=== PATIENT | male | born 1965 | race African-American/Black ===

== ENCOUNTER 2021-04-27 22:09 | Inpatient (IN) | payer OTHER ==
[2021-04-27 22:35] VITALS: BMI 23.0
[2021-04-27] MEDS ORDERED: MAGNESIUM HYDROX 2400MG/30ML ORAL SUSPENSION 30 ML CUP PO PRN (23:12)
[2021-04-27] MEDS ORDERED: ONDANSETRON *ODT* 4 MG TABLET SL PRN (23:12)
[2021-04-27] MEDS ORDERED: P-EPHED 60MG/TRIPROLIDI 2.5MG TABLET PO PRN (23:12)
[2021-04-27] MEDS ORDERED: ACETAMINOPHEN 325 MG TABLET (FP) PO PRN ×2 (23:12)
[2021-04-27] MEDS ORDERED: guaiFENesin 200 MG/10 ML 10 ML UNIT-DOSE CUPS PO PRN (23:12)
[2021-04-27] MEDS ORDERED: MAGNESIUM CITRATE 300 ML BOTTLE PO PRN (23:12)
[2021-04-27] MEDS ORDERED: NALOXONE HCL 0.4 MG/ML VIAL IM PRN (23:12)
[2021-04-27] MEDS ORDERED: METHOCARBAMOL 500 MG TABLET PO PRN (23:12)
[2021-04-27] MEDS ORDERED: hydrOXYzine PAMOATE 25 MG CAPSULE (FP) PO PRN (23:12)
[2021-04-27] MEDS ORDERED: IBUPROFEN 400 MG TABLET (FP) PO PRN (23:12)
[2021-04-27] MEDS ORDERED: BISMUTH SUBSALICYLATE 524 MG/30 ML PO PRN (23:12)
[2021-04-27] MEDS ORDERED: NALOXONE (NARCAN) HCL 4 MG/0.1 ML SPRAY NS PRN (23:12)
[2021-04-27] MEDS ORDERED: MENTHOL/PHENOL 1 EACH UD MM PRN (23:12)
[2021-04-27] MEDS ORDERED: NICOTINE 10 MG CARTRIDGE (INHALER) IH PRN (23:12)
[2021-04-27] MEDS ORDERED: MAG HYDROX/AL HYDROX/SIMETH 30 ML UNIT-DOSE CUP PO PRN (23:12)
[2021-04-27] MEDS ORDERED: DICYCLOMINE HCL 10 MG CAPSULE PO PRN (23:12)
[2021-04-28] MEDS ORDERED: NICOTINE 14 MG/24 HOURS TOPICAL PATCH TD SCH (10:00)
[2021-04-28] MEDS ORDERED: PRENATAL VITAMINS W/ FOLIC ACID TABLET (FP) PO SCH (10:00)
[2021-04-28 13:21] VITALS: BP 141/81; PULSE 81; TEMP 98.2
[2021-04-28] MEDS ORDERED: MELATONIN 5 MG TABLETS PO SCH (22:00)
[2021-04-28] MEDS ORDERED: THIAMINE HCL 100 MG TABLET (FP) PO SCH (22:00)
[2021-04-29] MEDS ORDERED: FLU VACC QS2021-22(6MOS UP)/PF 60 MCG/0.5 ML SYRINGE IM ONE (12:00)
== END 2021-04-28 13:23 | disposition other institution (70) | DRG 897 ==
LOC: YASAS 22:09 → UNDOADMIN 23:15 → Y6N 23:15 → UNDODISIN 04-28 13:23
PROVIDERS: ADMIT Allergy & Immunology; ATTEND Allergy & Immunology
PROC: HZ2ZZZZ Detoxification Services for Substance Abuse Treatment (ICD-10-PCS; principal; 2021-04-27)
DX: F11.23 Opioid dependence with withdrawal (principal); F10.230 Alcohol dependence with withdrawal, uncomplicated; F16.10 Hallucinogen abuse, uncomplicated; F17.210 Nicotine dependence, cigarettes, uncomplicated; D57.3 Sickle-cell trait; K40.90 Unilateral inguinal hernia, without obstruction or gangrene, not specified as recurrent; R10.31 Right lower quadrant pain; Z59.01 Sheltered homelessness
CPT/HCPCS: 93005; 93010; C9803; U0003; U0005

== ENCOUNTER 2021-04-28 01:16 | Emergency (ER) | payer OTHER ==
[2021-04-28 01:37] VITALS: TEMP 97.1; BMI 23.0
[2021-04-28 02:11] LABS: BASO % 0.8 % (0-2.0); EOS % 2.8 % (0-4.5); HEMATOCRIT 38.6 % (35.4-49); MCH 30.1 pg (25.7-33.7); MCHC 33.6 g/dl (32.0-35.9); MEAN CELL VOLUME 89.5 fl (80-96); MEAN PLT VOLUME 6.4 fl (7.5-11.1); MONO % 5.1 % (3.8-10.2); NEUT % 69.3 % (42.8-82.8); PLATELET COUNT 188 10^3/uL (134-434); RBC 4.31 M/mm3 (4.00-5.60); RDW 13.4 % (11.9-15.9); WHITE BLOOD COUNT 8.5 K/mm3 (4.0-10.0)
[2021-04-28 02:34] LABS: ALBUMIN 3.1 g/dl (3.4-5.0); CALCIUM 8.6 mg/dL (8.5-10.1)
[2021-04-28 02:38] LABS: CREATININE 0.9 mg/dL (0.55-1.3)
[2021-04-28 02:39] LABS: BILIRUBIN,TOTAL 0.2 mg/dL (0.2-1); TOT PROT 5.6 g/dl (6.4-8.2)
[2021-04-28 05:20] VITALS: PULSE 54
[2021-04-28 07:44] VITALS: BP 117/74
== END 2021-04-28 08:12 | disposition home or self-care (01) ==
LOC: JER 01:16
DX: K46.9 Unspecified abdominal hernia without obstruction or gangrene (principal)
CPT/HCPCS: 36415; 80053; 83605; 85025; 99283-25

== ENCOUNTER 2021-04-28 13:34 | Inpatient (IN) | payer OTHER ==
[~2021-04-28 13:34] MED LIST: ACETAMINOPHEN 325 MG TABLET (FP) PO PRN; IBUPROFEN 400 MG TABLET (FP) PO PRN; LOPERAMIDE HCL 2 MG CAPSULE PO PRN; MAG HYDROX/AL HYDROX/SIMETH 30 ML UNIT-DOSE CUP PO PRN; MAGNESIUM CITRATE 300 ML BOTTLE PO PRN; MAGNESIUM HYDROX 2400MG/30ML ORAL SUSPENSION 30 ML CUP PO PRN; NICOTINE 10 MG CARTRIDGE (INHALER) IH PRN; NICOTINE POLACRILEX 2 MG GUM BUC PRN; P-EPHED 60MG/TRIPROLIDI 2.5MG TABLET PO PRN; guaiFENesin 200 MG/10 ML 10 ML UNIT-DOSE CUPS PO PRN; hydrOXYzine PAMOATE 25 MG CAPSULE (FP) PO PRN
[2021-04-28 14:18] VITALS: BP 111/63; PULSE 57; TEMP 98.7
[2021-04-28] MEDS ORDERED: THIAMINE HCL 100 MG TABLET (FP) PO SCH (22:00)
[2021-04-28] MEDS ORDERED: MELATONIN 5 MG TABLETS PO SCH (22:00)
[2021-04-29] MEDS ORDERED: PRENATAL VITAMINS W/ FOLIC ACID TABLET (FP) PO SCH (10:00)
[2021-04-29] MEDS ORDERED: NICOTINE 14 MG/24 HOURS TOPICAL PATCH TD SCH (10:00)
== END 2021-04-28 15:25 | disposition left against medical advice (07) | DRG 894 ==
LOC: YASAS 13:34 → Y5N 13:36
PROVIDERS: ADMIT Allergy & Immunology; ATTEND Allergy & Immunology
PROC: HZ42ZZZ Group Counseling for Substance Abuse Treatment, Cognitive-Behavioral (ICD-10-PCS; principal; 2021-04-28)
DX: F11.20 Opioid dependence, uncomplicated (principal); F10.20 Alcohol dependence, uncomplicated; F16.10 Hallucinogen abuse, uncomplicated; F17.210 Nicotine dependence, cigarettes, uncomplicated; K40.90 Unilateral inguinal hernia, without obstruction or gangrene, not specified as recurrent; Z59.01 Sheltered homelessness

== ENCOUNTER 2023-07-10 16:45 | Observation (INO) | payer OTHER ==
[2023-07-10 16:55] VITALS: BMI 23.7
[2023-07-10] MEDS ORDERED: SODIUM CHLORIDE 500 ML IV STA (17:48)
[2023-07-10] MEDS ORDERED: MECLIZINE HCL 12.5 MG TABLET PO ONE (17:57)
[2023-07-10 18:50] LABS: BASO % 0.4 % (0-2.0); EOS % 0.3 % (0-4.5); HEMATOCRIT 39.8 % (35.4-49); HEMOGLOBIN 13.2 GM/dL (11.7-16.9); LYMPH % 7.6 % (8-40); MCH 28.9 pg (25.7-33.7); MCHC 33.2 g/dl (32.0-35.9); MEAN CELL VOLUME 87.1 fl (80-96); MEAN PLT VOLUME 6.5 fl (7.5-11.1); MONO % 2.5 % (3.8-10.2); NEUT % 89.2 % (42.8-82.8); PLATELET COUNT 189 10^3/uL (134-434); RBC 4.57 M/mm3 (4.00-5.60); RDW 14.1 % (11.9-15.9); WHITE BLOOD COUNT 11.7 K/mm3 (4.0-10.0)
[2023-07-10 19:09] LABS: POTASSIUM 3.9 mmol/L (3.5-5.1)
[2023-07-10 19:11] LABS: ALBUMIN 3.4 g/dl (3.4-5.0); CALCIUM 9.1 mg/dL (8.5-10.1)
[2023-07-10 19:14] LABS: CREATININE 0.7 mg/dL (0.55-1.3)
[2023-07-10 19:16] LABS: BILIRUBIN,TOTAL 0.4 mg/dL (0.2-1); TOT PROT 6.1 g/dl (6.4-8.2)
[2023-07-10] MEDS ORDERED: ALBUTEROL SO4 2.5/IPRATROPIUM 0.5 INH SOL 3 ML VIAL.NEB. NEB ONE (20:05)
[2023-07-10] MEDS ORDERED: MECLIZINE HCL 12.5 MG TABLET ONE (20:11)
[2023-07-10] MEDS ORDERED: MECLIZINE HCL 25 MG TABLET (FP) PO ONE (20:21)
[2023-07-10] MEDS ORDERED: ONDANSETRON 4 MG/2 ML VIAL IVPUSH PRN (23:00)
[2023-07-10] MEDS ORDERED: LORazepam 1 MG TABLET PO PRN (23:04)
[2023-07-10 23:51] LABS: MAGNESIUM 1.8 mg/dL (1.8-2.4)
[2023-07-11] MEDS: methaDONE HCL 40 MG DISPERSABLE TABLET PO SCH (08:49)
[2023-07-11] MEDS: ENOXAPARIN NA (PORCINE) 40 MG/0.4 ML DISP.SYRIN SQ SCH (09:08)
[2023-07-11] MEDS: THIAMINE HCL 100 MG TABLET (FP) PO SCH (09:08)
[2023-07-11] MEDS: MECLIZINE HCL 12.5 MG TABLET PO PRN (09:08)
[2023-07-11] MEDS: FOLIC ACID 1 MG TABLET (FP) PO SCH (09:08)
[2023-07-11 10:48] LABS: BASO % 0.3 % (0-2.0); EOS % 2.3 % (0-4.5); HEMATOCRIT 37.4 % (35.4-49); HEMOGLOBIN 12.5 GM/dL (11.7-16.9); LYMPH % 29.1 % (8-40); MCH 29.5 pg (25.7-33.7); MCHC 33.5 g/dl (32.0-35.9); MONO % 3.5 % (3.8-10.2); NEUT % 64.8 % (42.8-82.8); PLATELET COUNT 174 10^3/uL (134-434); RBC 4.25 M/mm3 (4.00-5.60); RDW 13.9 % (11.9-15.9); WHITE BLOOD COUNT 7.8 K/mm3 (4.0-10.0)
[2023-07-11 10:53] LABS: POTASSIUM 3.4 mmol/L (3.5-5.1)
[2023-07-11 10:56] LABS: ALBUMIN 2.8 g/dl (3.4-5.0); BLOOD UREA NITROGEN 10.8 mg/dL (7-18); MAGNESIUM 1.9 mg/dL (1.8-2.4)
[2023-07-11 10:59] LABS: PHOSPHOROUS 1.5 mg/dL (2.5-4.9)
[2023-07-11 11:00] LABS: BILIRUBIN,TOTAL 0.3 mg/dL (0.2-1); TOT PROT 5.3 g/dl (6.4-8.2)
[2023-07-11 11:02] LABS: CREATININE 0.8 mg/dL (0.55-1.3)
[2023-07-11] MEDS: FLUTICASONE PROP 0.05% 16 GM NASAL SPRAY NS SCH ×2 (14:21→21:25)
[2023-07-11] MEDS ORDERED: POTASSIUM PHOSPHATE 30 MM in SODIUM CHLORIDE 500 ML IVPB ONE (19:30)
[2023-07-11 21:41] LABS: COCAINE, UR NEGATIVE (NEGATIVE); URINE BARBITURATES NEGATIVE (NEGATIVE); URINE BENZODIAZEPINES NEGATIVE (NEGATIVE)
[2023-07-11 21:42] LABS: URINE AMPHETAMINES NEGATIVE (NEGATIVE)
[2023-07-11 22:26] LABS: METHADONE, UR POSITIVE (NEGATIVE); OPIATES, URI POSITIVE (NEGATIVE); PHENCYCLIDINE,URINE POSITIVE (NEGATIVE)
[2023-07-12] MEDS: methaDONE HCL 40 MG DISPERSABLE TABLET PO SCH (06:07)
[2023-07-12] MEDS: MULTIVITAMINS (DAILY MVI) TABLET (FP) PO SCH (09:29)
[2023-07-12] MEDS: FOLIC ACID 1 MG TABLET (FP) PO SCH (09:30)
[2023-07-12] MEDS: THIAMINE HCL 100 MG TABLET (FP) PO SCH (09:30)
[2023-07-12] MEDS: ENOXAPARIN NA (PORCINE) 40 MG/0.4 ML DISP.SYRIN SQ SCH (09:30)
[2023-07-12] MEDS: FLUTICASONE PROP 0.05% 16 GM NASAL SPRAY NS SCH ×2 (09:32→21:32)
[2023-07-12 10:53] LABS: POTASSIUM 3.9 mmol/L (3.5-5.1)
[2023-07-12 10:55] LABS: BASO % 0.4 % (0-2.0); EOS % 3.6 % (0-4.5); HEMATOCRIT 36.9 % (35.4-49); HEMOGLOBIN 12.5 GM/dL (11.7-16.9); LYMPH % 28.5 % (8-40); MCH 29.6 pg (25.7-33.7); MCHC 33.9 g/dl (32.0-35.9); MEAN CELL VOLUME 87.2 fl (80-96); MEAN PLT VOLUME 6.8 fl (7.5-11.1); NEUT % 60.5 % (42.8-82.8); PLATELET COUNT 165 10^3/uL (134-434); RBC 4.23 M/mm3 (4.00-5.60); RDW 14.2 % (11.9-15.9); WHITE BLOOD COUNT 6.1 K/mm3 (4.0-10.0)
[2023-07-12 11:00] LABS: CALCIUM 8.9 mg/dL (8.5-10.1)
[2023-07-12 11:01] LABS: BLOOD UREA NITROGEN 10.1 mg/dL (7-18)
[2023-07-12 11:02] LABS: MAGNESIUM 1.9 mg/dL (1.8-2.4)
[2023-07-12 11:04] LABS: CREATININE 0.7 mg/dL (0.55-1.3); PHOSPHOROUS 3.1 mg/dL (2.5-4.9)
[2023-07-13] MEDS: methaDONE HCL 40 MG DISPERSABLE TABLET PO SCH (06:04)
[2023-07-13] MEDS: ENOXAPARIN NA (PORCINE) 40 MG/0.4 ML DISP.SYRIN SQ SCH (10:06)
[2023-07-13] MEDS: FOLIC ACID 1 MG TABLET (FP) PO SCH (10:06)
[2023-07-13] MEDS: FLUTICASONE PROP 0.05% 16 GM NASAL SPRAY NS SCH (10:07)
[2023-07-13 10:08] LABS: BASO % 0.3 % (0-2.0); EOS % 3.5 % (0-4.5); HEMATOCRIT 38.5 % (35.4-49); HEMOGLOBIN 12.9 GM/dL (11.7-16.9); LYMPH % 30.5 % (8-40); MCH 29.4 pg (25.7-33.7); MCHC 33.5 g/dl (32.0-35.9); MEAN CELL VOLUME 87.6 fl (80-96); MEAN PLT VOLUME 6.7 fl (7.5-11.1); MONO % 5.8 % (3.8-10.2); NEUT % 59.9 % (42.8-82.8); PLATELET COUNT 168 10^3/uL (134-434); RBC 4.39 M/mm3 (4.00-5.60); RDW 14.1 % (11.9-15.9); WHITE BLOOD COUNT 6.2 K/mm3 (4.0-10.0)
[2023-07-13] MEDS: MULTIVITAMINS (DAILY MVI) TABLET (FP) PO SCH (10:09)
[2023-07-13] MEDS: THIAMINE HCL 100 MG TABLET (FP) PO SCH (10:09)
[2023-07-13 10:26] LABS: POTASSIUM 3.9 mmol/L (3.5-5.1)
[2023-07-13] MEDS: MECLIZINE HCL 12.5 MG TABLET PO PRN (10:37)
[2023-07-13 10:42] LABS: BLOOD UREA NITROGEN 10.1 mg/dL (7-18)
[2023-07-13 10:45] LABS: CREATININE 0.7 mg/dL (0.55-1.3)
[2023-07-13 15:07] VITALS: BP 94/65; PULSE 52; TEMP 98
[2023-07-13 16:41] VITALS: RESP 17
== END 2023-07-13 16:45 | disposition home or self-care (01) ==
LOC: JER 16:45 → JERBED 21:29 → J5S 07-11 03:03
PROVIDERS: ADMIT Internal Medicine; ATTEND Internal Medicine
PROC: 3E0F7GC Introduction of Other Therapeutic Substance into Respiratory Tract, Via Natural or Artificial Opening (ICD-10-PCS; principal; 2023-07-10)
PROC: 3E023GC Introduction of Other Therapeutic Substance into Muscle, Percutaneous Approach (ICD-10-PCS; 2023-07-10)
PROC: 3E033NZ Introduction of Analgesics, Hypnotics, Sedatives into Peripheral Vein, Percutaneous Approach (ICD-10-PCS; 2023-07-10)
DX: R42 Dizziness and giddiness (principal); F19.99 Other psychoactive substance use, unspecified with unspecified psychoactive substance-induced disorder; Z29.89 Encounter for other specified prophylactic measures; Z91.013 Allergy to seafood; D57.3 Sickle-cell trait; F17.210 Nicotine dependence, cigarettes, uncomplicated
CPT/HCPCS: 0241U-QW; 36415; 70450-TC; 70551-TC; 71046-TC-FY; 72125-TC; 72170-TC-FY; 80048; 80053; 80061; 80307; 82607; 82746; 82962; 83735; 84100; 84443; 84484; 85025; 93005; 93010; 93306-TC; 94640; 96365; 96372; 96375; 97116-GP; 97162-GP; 99285-25; G0378

== ENCOUNTER 2023-07-28 09:09 | Inpatient (IN) | payer OTHER ==
[2023-07-28 09:37] VITALS: BMI 25.4
[2023-07-28] MEDS ORDERED: BENZONATATE 200 MG CAPSULE PO PRN (10:03)
[2023-07-28] MEDS ORDERED: guaiFENesin 600 MG TABLET.ER (FP) PO PRN (10:03)
[2023-07-28] MEDS ORDERED: hydrOXYzine PAMOATE 25 MG CAPSULE (FP) PO PRN (10:03)
[2023-07-28] MEDS ORDERED: POLYETHYLENE GLYCOL (HEALTHYLAX) 3350 17 GM PACKET PO PRN (10:03)
[2023-07-28] MEDS ORDERED: NALOXONE HCL 0.4 MG/ML VIAL IM PRN (10:03)
[2023-07-28] MEDS ORDERED: NICOTINE POLACRILEX 4 MG GUM BUC PRN (10:03)
[2023-07-28] MEDS ORDERED: MAG HYDROX/AL HYDROX/SIMETH 30 ML UNIT-DOSE CUP PO PRN (10:03)
[2023-07-28] MEDS ORDERED: BENZOCAINE/MENTHOL (CHLORASEPTIC ) LOZENGE MM PRN (10:03)
[2023-07-28] MEDS ORDERED: ACETAMINOPHEN 325 MG TABLET (FP) PO PRN (10:03)
[2023-07-28] MEDS ORDERED: NALOXONE HCL (KLOXXADO) 8 MG SPRAY NS PRN (10:03)
[2023-07-28] MEDS ORDERED: MAGNESIUM HYDROX 2400MG/30ML ORAL SUSPENSION 30 ML CUP PO PRN (10:03)
[2023-07-28] MEDS ORDERED: LOPERAMIDE HCL 2 MG CAPSULE PO PRN (10:03)
[2023-07-28] MEDS ORDERED: IBUPROFEN 600 MG TABLET (FP) PO PRN (10:03)
[2023-07-28] MEDS ORDERED: IBUPROFEN 400 MG TABLET (FP) PO PRN (10:03)
[2023-07-28] MEDS ORDERED: MECLIZINE HCL 12.5 MG TABLET PO PRN (10:06)
[2023-07-28] MEDS: PRENATAL VITAMINS W/ FOLIC ACID TABLET (FP) PO SCH (11:43)
[2023-07-28] MEDS: MIRTAZAPINE 15 MG TABLET (FP) PO SCH (21:20)
[2023-07-28] MEDS: THIAMINE HCL 100 MG TABLET (FP) PO SCH (21:20)
[2023-07-28] MEDS: MELATONIN 5 MG TABLETS PO SCH (21:20)
[2023-07-28] MEDS: FLUTICASONE PROP 0.05% 16 GM NASAL SPRAY NS SCH (21:21)
[2023-07-29] MEDS ORDERED: methaDONE HCL 40 MG DISPERSABLE TABLET PO SCH (06:00)
[2023-07-29] MEDS: methaDONE HCL 40 MG DISPERSABLE TABLET PO SCH (06:17)
[2023-07-29 10:42] LABS: HEMATOCRIT 38.9 % (35.4-49); HEMOGLOBIN 13.1 GM/dL (11.7-16.9); MCH 29.4 pg (25.7-33.7); MCHC 33.7 g/dl (32.0-35.9); MEAN CELL VOLUME 87.2 fl (80-96); MEAN PLT VOLUME 6.9 fl (7.5-11.1); PLATELET COUNT 180 10^3/uL (134-434); RBC 4.46 M/mm3 (4.00-5.60); RDW 14.3 % (11.9-15.9); WHITE BLOOD COUNT 3.8 K/mm3 (4.0-10.0)
[2023-07-29 12:04] LABS: POTASSIUM 4.4 mmol/L (3.5-5.1)
[2023-07-29 12:07] LABS: ALBUMIN 3.4 g/dl (3.4-5.0); CALCIUM 9.7 mg/dL (8.5-10.1)
[2023-07-29 12:08] LABS: BLOOD UREA NITROGEN 12.5 mg/dL (7-18)
[2023-07-29 12:11] LABS: CREATININE 0.9 mg/dL (0.55-1.3)
[2023-07-29 12:12] LABS: BILIRUBIN,TOTAL 0.3 mg/dL (0.2-1); TOT PROT 6.3 g/dl (6.4-8.2)
[2023-07-30] MEDS: FLU VACCINE (FLULAVAL) PF 60 MCG/0.5 ML SYRINGE 2023-2024 IM ONE (10:05)
[2023-07-30 15:36] LABS: PH,URINE 7.5 (5.0-8.0); URINE APPEARANCE CLEAR; URINE BILIRUBIN NEGATIVE (NEGATIVE); URINE COLOR YELLOW; URINE GLUCOSE (UA) NEGATIVE (NEGATIVE); URINE KETONE NEGATIVE (NEGATIVE); URINE LEUK ESTERASE NEGATIVE (NEGATIVE); URINE NITRITE NEGATIVE (NEGATIVE); URINE PROTEIN NEGATIVE (NEGATIVE); URINE UROBILINOGEN 0.2 mg/dL (0.2-1.0)
[2023-07-31 07:01] VITALS: BP 124/84; PULSE 58; RESP 18; TEMP 97.7
== END 2023-07-31 13:30 | disposition home or self-care (01) | DRG 895 ==
LOC: YASAS 09:09 → Y3E 12:48
PROVIDERS: ADMIT Allergy & Immunology; ATTEND Psychiatry & Neurology Pain Medicine
PROC: HZ42ZZZ Group Counseling for Substance Abuse Treatment, Cognitive-Behavioral (ICD-10-PCS; principal; 2023-07-28)
DX: F16.20 Hallucinogen dependence, uncomplicated (principal); F11.20 Opioid dependence, uncomplicated; F19.282 Other psychoactive substance dependence with psychoactive substance-induced sleep disorder; F10.20 Alcohol dependence, uncomplicated; F17.210 Nicotine dependence, cigarettes, uncomplicated; F32.A Depression, unspecified; J06.9 Acute upper respiratory infection, unspecified; R42 Dizziness and giddiness; Z91.410 Personal history of adult physical and sexual abuse; Z63.0 Problems in relationship with spouse or partner; Z28.310 Unvaccinated for COVID-19; Z28.9 Immunization not carried out for unspecified reason; Z56.0 Unemployment, unspecified
CPT/HCPCS: 36415; 80053; 81003; 85027; 86780; 87635; 93005; 93010

== ENCOUNTER 2023-08-01 20:33 | Emergency (ER) | payer OTHER ==
[2023-08-01 20:39] VITALS: BP 129/85; PULSE 69; RESP 16; TEMP 97.5; BMI 24.4
[2023-08-01] MEDS ORDERED: ACETAMINOPHEN 325 MG TABLET (FP) ONE (21:24)
[2023-08-01] MEDS: ACETAMINOPHEN 500 MG TABLET (FP) PO ONE (21:28)
[2023-08-01] MEDS ORDERED: LACTULOSE 20 GM/30 ML UDC (FOR ORAL USE ONLY) ONE (22:57)
[2023-08-01] MEDS ORDERED: POLYETHYLENE GLYCOL (HEALTHYLAX) 3350 17 GM PACKET ONE (22:57)
[2023-08-01] MEDS: LACTULOSE 20 GM/30 ML UDC (FOR ORAL USE ONLY) PO ONE (23:04)
[2023-08-01] MEDS: POLYETHYLENE GLYCOL (HEALTHYLAX) 3350 17 GM PACKET PO ONE (23:04)
== END 2023-08-01 23:09 | disposition home or self-care (01) ==
LOC: JER 20:33
DX: R10.9 Unspecified abdominal pain (principal); K59.00 Constipation, unspecified
CPT/HCPCS: 74019-TC-FY; 82272; 99284-25

== ENCOUNTER 2023-10-20 12:19 | Inpatient (IN) | payer OTHER ==
[2023-10-20 13:00] VITALS: BMI 25.4
[2023-10-20] MEDS ORDERED: BENZONATATE 200 MG CAPSULE PO PRN (13:17)
[2023-10-20] MEDS ORDERED: ONDANSETRON *ODT* 4 MG TABLET SL PRN (13:17)
[2023-10-20] MEDS ORDERED: NICOTINE POLACRILEX 2 MG GUM BUC PRN (13:17)
[2023-10-20] MEDS ORDERED: POLYETHYLENE GLYCOL (HEALTHYLAX) 3350 17 GM PACKET PO PRN (13:17)
[2023-10-20] MEDS ORDERED: METHOCARBAMOL 500 MG TABLET PO PRN (13:17)
[2023-10-20] MEDS ORDERED: IBUPROFEN 400 MG TABLET (FP) PO PRN (13:17)
[2023-10-20] MEDS ORDERED: BENZOCAINE/MENTHOL (CHLORASEPTIC ) LOZENGE MM PRN (13:17)
[2023-10-20] MEDS ORDERED: hydrOXYzine PAMOATE 25 MG CAPSULE (FP) PO PRN (13:17)
[2023-10-20] MEDS ORDERED: MAGNESIUM HYDROX 2400MG/30ML ORAL SUSPENSION 30 ML CUP PO PRN (13:17)
[2023-10-20] MEDS ORDERED: DICYCLOMINE HCL 10 MG CAPSULE PO PRN (13:17)
[2023-10-20] MEDS ORDERED: MAG HYDROX/AL HYDROX/SIMETH 30 ML UNIT-DOSE CUP PO PRN (13:17)
[2023-10-20] MEDS ORDERED: NALOXONE HCL (KLOXXADO) 8 MG SPRAY NS PRN (13:17)
[2023-10-20] MEDS ORDERED: LOPERAMIDE HCL 2 MG CAPSULE PO PRN (13:17)
[2023-10-20] MEDS ORDERED: guaiFENesin 600 MG TABLET.ER (FP) PO PRN (13:17)
[2023-10-20] MEDS ORDERED: BISMUTH SUBSALICYLATE 524 MG/30 ML PO PRN (13:17)
[2023-10-20] MEDS ORDERED: IBUPROFEN 600 MG TABLET (FP) PO PRN (13:17)
[2023-10-20] MEDS ORDERED: NALOXONE HCL 0.4 MG/ML VIAL IM PRN (13:17)
[2023-10-20] MEDS ORDERED: ACETAMINOPHEN 325 MG TABLET (FP) PO PRN (13:17)
[2023-10-20] MEDS ORDERED: PRENATAL VITAMINS W/ FOLIC ACID TABLET (FP) PO ONE (15:33)
[2023-10-20] MEDS: PRENATAL VITAMINS W/ FOLIC ACID TABLET (FP) PO SCH (15:35)
[2023-10-20] MEDS: BACITRACIN 0.9 GM PACKET TP SCH (21:44)
[2023-10-20] MEDS: MELATONIN 5 MG TABLETS PO SCH (23:09)
[2023-10-20] MEDS: THIAMINE 100 MG TABLET PO SCH (23:09)
[2023-10-21] MEDS: FLUTICASONE PROP 0.05% 16 GM NASAL SPRAY NS SCH (00:42)
[2023-10-21 09:40] VITALS: RESP 16
[2023-10-21 09:52] LABS: POTASSIUM 4.4 mmol/L (3.5-5.1)
[2023-10-21 09:53] LABS: HEMATOCRIT 39.5 % (35.4-49); HEMOGLOBIN 13.2 GM/dL (11.7-16.9); MCHC 33.4 g/dl (32.0-35.9); MEAN CELL VOLUME 86.8 fl (80-96); MEAN PLT VOLUME 6.8 fl (7.5-11.1); PLATELET COUNT 216 10^3/uL (134-434); RBC 4.55 M/mm3 (4.00-5.60); WHITE BLOOD COUNT 11.1 K/mm3 (4.0-10.0)
[2023-10-21 09:54] LABS: CALCIUM 9.3 mg/dL (8.5-10.1)
[2023-10-21 09:55] LABS: ALBUMIN 3.1 g/dl (3.4-5.0)
[2023-10-21 09:58] LABS: CREATININE 0.7 mg/dL (0.55-1.3)
[2023-10-21 09:59] LABS: TOT PROT 5.8 g/dl (6.4-8.2)
[2023-10-21 10:00] LABS: BILIRUBIN,TOTAL 0.7 mg/dL (0.2-1)
[2023-10-21 13:13] VITALS: BP 144/78; PULSE 66; TEMP 97.3
== END 2023-10-21 13:00 | disposition left against medical advice (07) | DRG 894 ==
LOC: YASAS 12:19 → Y6N 14:01
PROVIDERS: ADMIT Allergy & Immunology; ATTEND Surgery
PROC: HZ2ZZZZ Detoxification Services for Substance Abuse Treatment (ICD-10-PCS; principal; 2023-10-20)
DX: F11.20 Opioid dependence, uncomplicated (principal); F14.20 Cocaine dependence, uncomplicated; F16.20 Hallucinogen dependence, uncomplicated; F17.210 Nicotine dependence, cigarettes, uncomplicated; Z86.59 Personal history of other mental and behavioral disorders; Z28.310 Unvaccinated for COVID-19; Z28.9 Immunization not carried out for unspecified reason
CPT/HCPCS: 36415; 80053; 80305; 80307; 85027; 86780; 93005; 93010

== ENCOUNTER 2024-01-15 11:49 | Emergency (ER) | payer OTHER ==
[2024-01-15 12:08] VITALS: BP 118/71; PULSE 59; RESP 18; TEMP 98.3; BMI 23.7
[2024-01-15] MEDS ORDERED: ACETAMINOPHEN 325 MG TABLET (FP) ONE (12:57)
[2024-01-15] MEDS: ACETAMINOPHEN 325 MG TABLET (FP) PO ONE (13:00)
== END 2024-01-15 17:06 | disposition left against medical advice (07) ==
LOC: JER 11:49
DX: F19.929 Other psychoactive substance use, unspecified with intoxication, unspecified (principal)
CPT/HCPCS: 70450-TC; 72125-TC; 82962; 99284-25

== ENCOUNTER 2024-04-26 10:10 | Inpatient (IN) | payer MEDICARE, OTHER ==
[2024-04-26 10:59] VITALS: BMI 23.7
[2024-04-26] MEDS ORDERED: NICOTINE POLACRILEX 2 MG LOZENGE BC PRN (11:16)
[2024-04-26] MEDS ORDERED: DOCUSATE SODIUM 100 MG CAPSULE (FP) PO PRN (11:16)
[2024-04-26] MEDS ORDERED: BENZOCAINE/MENTHOL (CHLORASEPTIC ) LOZENGE MM PRN (11:16)
[2024-04-26] MEDS ORDERED: ACETAMINOPHEN 325 MG TABLET (FP) PO PRN (11:16)
[2024-04-26] MEDS ORDERED: IBUPROFEN 600 MG TABLET (FP) PO PRN (11:16)
[2024-04-26] MEDS ORDERED: NALOXONE (NARCAN) HCL 4 MG/0.1 ML SPRAY NS PRN (11:16)
[2024-04-26] MEDS ORDERED: LOPERAMIDE HCL 2 MG CAPSULE PO PRN (11:16)
[2024-04-26] MEDS ORDERED: POLYETHYLENE GLYCOL (HEALTHYLAX) 3350 17 GM PACKET PO PRN (11:16)
[2024-04-26] MEDS ORDERED: IBUPROFEN 400 MG TABLET (FP) PO PRN (11:16)
[2024-04-26] MEDS ORDERED: guaiFENesin 600 MG TABLET.ER (FP) PO PRN (11:16)
[2024-04-26] MEDS ORDERED: BENZONATATE 200 MG CAPSULE PO PRN (11:16)
[2024-04-26] MEDS: THIAMINE 100 MG TABLET PO SCH (21:09)
[2024-04-26] MEDS: MELATONIN 5 MG TABLETS PO SCH (21:09)
[2024-04-27] MEDS ORDERED: methaDONE HCL 40 MG DISPERSABLE TABLET PO SCH (06:45)
[2024-04-27] MEDS: methaDONE 80 MG, methaDONE 10 MG PO SCH (06:47)
[2024-04-27] MEDS: PRENATAL VITAMINS W/ FOLIC ACID TABLET (FP) PO SCH (10:12)
[2024-04-27 13:16] LABS: HEMATOCRIT 36.6 % (35.4-49); HEMOGLOBIN 11.8 GM/dL (11.7-16.9); MCH 28.7 pg (25.7-33.7); MCHC 32.3 g/dl (32.0-35.9); MEAN CELL VOLUME 88.9 fl (80-96); MEAN PLT VOLUME 6.8 fl (7.5-11.1); PLATELET COUNT 188 10^3/uL (134-434); RBC 4.12 M/mm3 (4.00-5.60); RDW 14.4 % (11.9-15.9); WHITE BLOOD COUNT 6.4 K/mm3 (4.0-10.0)
[2024-04-27 13:46] LABS: POTASSIUM 4.6 mmol/L (3.5-5.1)
[2024-04-27 13:53] LABS: BLOOD UREA NITROGEN 12.2 mg/dL (7-18); CALCIUM 9.1 mg/dL (8.5-10.1)
[2024-04-27 13:57] LABS: BILIRUBIN,TOTAL 0.3 mg/dL (0.2-1); CREATININE 0.6 mg/dL (0.55-1.3)
[2024-04-27 13:58] LABS: TOT PROT 5.5 g/dl (6.4-8.2)
[2024-04-27 15:19] LABS: HIV INTERPRETATION NEGATIVE (NEGATIVE)
[2024-04-27] MEDS: MIRTAZAPINE 15 MG TABLET (FP) PO SCH (21:36)
[2024-04-29 00:07] LABS: PH,URINE 5.5 (5.0-8.0); URINE APPEARANCE CLEAR; URINE BILIRUBIN NEGATIVE (NEGATIVE); URINE COLOR YELLOW; URINE GLUCOSE (UA) NEGATIVE (NEGATIVE); URINE KETONE NEGATIVE (NEGATIVE); URINE LEUK ESTERASE NEGATIVE (NEGATIVE); URINE NITRITE NEGATIVE (NEGATIVE); URINE PROTEIN NEGATIVE (NEGATIVE); URINE UROBILINOGEN 0.2 mg/dL (0.2-1.0)
[2024-04-29] MEDS: NICOTINE POLACRILEX 2 MG GUM BUC PRN (10:28)
[2024-05-04] MEDS: TOLNAFTATE 1% CREAM 15 GM TUBE TP SCH (15:31)
[2024-05-05] MEDS: LIDOCAINE 4% PATCH TP SCH (14:09)
[2024-05-05] MEDS: LIDOCAINE PATCH REMOVAL MC SCH (21:01)
[2024-05-07] MEDS: methaDONE HCL 40 MG DISPERSABLE TABLET PO SCH (10:17)
[2024-05-07] MEDS: methaDONE HCL 10 MG TABLET PO SCH (10:18)
[2024-05-12] MEDS: hydrOXYzine PAMOATE 25 MG CAPSULE (FP) PO PRN (05:48)
[2024-05-12] MEDS: ONDANSETRON *ODT* 4 MG TABLET SL PRN (06:18)
[2024-05-12] MEDS: MAG HYDROX/AL HYDROX/SIMETH 30 ML UNIT-DOSE CUP PO PRN (08:38)
[2024-05-12] MEDS: methaDONE 80 MG, methaDONE 10 MG PO SCH (09:49)
[2024-05-12] MEDS ORDERED: methaDONE HCL 40 MG DISPERSABLE TABLET PO SCH (10:00)
[2024-05-13] MEDS ORDERED: guaiFENesin 600 MG TABLET.ER (FP) PO PRN (12:22)
[2024-05-13] MEDS: TOBRAMYCIN 0.3% OPHTH OINT 3.5 GM OD SCH (14:28)
[2024-05-13] MEDS: OXYMETAZOLINE 0.05% NASAL SOLUTION 15 ML BOTTLE NS PRN (21:35)
[2024-05-14] MEDS: METHYL SALICYLATE/MENTHOL 30 GM TUBE TP PRN (11:17)
[2024-05-17] MEDS: MAGNESIUM HYDROX 2400MG/30ML ORAL SUSPENSION 30 ML CUP PO PRN (10:00)
[2024-05-19] MEDS: BISACODYL 5 MG TABLET.DR (FP) PO PRN (05:53)
[2024-05-20 06:36] VITALS: BP 130/67; PULSE 62; RESP 16; TEMP 97.7
[2024-05-20] MEDS: NALOXONE (NYS OPIOID OVERDOSE PROGRAM) 4 MG/0.1 ML SPRAY NS SCH (09:27)
== END 2024-05-20 10:18 | disposition home or self-care (01) | DRG 895 ==
LOC: YASAS 10:10 → Y3W 12:16
PROVIDERS: ADMIT Psychiatry & Neurology Pain Medicine; ATTEND Psychiatry & Neurology Pain Medicine
PROC: HZ42ZZZ Group Counseling for Substance Abuse Treatment, Cognitive-Behavioral (ICD-10-PCS; principal; 2024-04-26)
DX: F11.20 Opioid dependence, uncomplicated (principal); F14.20 Cocaine dependence, uncomplicated; F16.20 Hallucinogen dependence, uncomplicated; F19.282 Other psychoactive substance dependence with psychoactive substance-induced sleep disorder; F17.210 Nicotine dependence, cigarettes, uncomplicated; F32.A Depression, unspecified; B35.3 Tinea pedis; H00.013 Hordeolum externum right eye, unspecified eyelid; E78.5 Hyperlipidemia, unspecified; I25.10 Atherosclerotic heart disease of native coronary artery without angina pectoris; I10 Essential (primary) hypertension; J06.9 Acute upper respiratory infection, unspecified; M54.50 Low back pain, unspecified; G89.29 Other chronic pain; R11.2 Nausea with vomiting, unspecified; Z99.89 Dependence on other enabling machines and devices
CPT/HCPCS: 0241U-QW; 36415; 80053; 80305; 81003; 85027; 86780; 86803; 87389; 87811; Q0162

== ENCOUNTER 2024-09-19 11:12 | Emergency (ER) | payer MEDICARE, OTHER ==
[2024-09-19 12:04] LABS: URINE APPEARANCE CLEAR; URINE BILIRUBIN NEGATIVE (NEGATIVE); URINE COLOR YELLOW; URINE GLUCOSE (UA) NEGATIVE (NEGATIVE); URINE KETONE NEGATIVE (NEGATIVE)
[2024-09-19 12:05] LABS: URINE NITRITE NEGATIVE (NEGATIVE); URINE PROTEIN NEGATIVE (NEGATIVE); URINE UROBILINOGEN 0.2 mg/dL (0.2-1.0)
[2024-09-19 12:06] LABS: URINE LEUK ESTERASE 1+ (NEGATIVE)
[2024-09-19 12:36] LABS: ABSOLUTE IMMATURE GRANULOCYTES 0.02 x10^3/uL (0.0-0.031); BASOPHILS # 0.01 x10^3/uL (0.01-0.08); EOSINOPHIL % 1.2 % (0.8-7.0); EOSINOPHILS # 0.11 x10^3/uL (0.04-0.54); HEMATOCRIT 37.6 % (40.1-51.0); HEMOGLOBIN 11.9 g/dL (13.7-17.5); MCHC 31.6 g/dl (32.3-36.5); MEAN CELL VOLUME 89.1 fl (79.0-92.2); MEAN PLT VOLUME 8.1 fl (9.4-12.4); MONOCYTE # 0.52 x10^3/uL (0.30-0.82); MONOCYTE % 5.7 % (5.3-12.2); PLATELET COUNT 161 x10^3/uL (163-337); RDW 13.3 % (12.2-16.4)
[2024-09-19 12:43] LABS: INR 1.07 (0.83-1.09); PROTHROMBIN TIME (PATIENT) 11.8 SEC (9.7-13.0)
[2024-09-19 12:46] LABS: ACTIVATED PTT 31.7 SECONDS (25.2-36.5)
[2024-09-19] MEDS: SODIUM CHLORIDE 0.9% 1000 ML INFUS.BAG IV ONE (12:46)
[2024-09-19 12:47] VITALS: TEMP 97.9; BMI 34.9
[2024-09-19 13:07] LABS: CALCIUM 8.9 mg/dL (8.5-10.1)
[2024-09-19 13:08] LABS: ALBUMIN 3.3 g/dl (3.4-5.0); BLOOD UREA NITROGEN 11.6 mg/dL (7-18)
[2024-09-19 13:11] LABS: CREATININE 0.7 mg/dL (0.55-1.3); PHOSPHOROUS 2.4 mg/dL (2.5-4.9)
[2024-09-19 13:12] LABS: BILIRUBIN,TOTAL 0.3 mg/dL (0.2-1)
[2024-09-19 13:50] LABS: HCV DIAGNOSTIC IN-HOUSE W/RFLX NON-REACTIVE (NONREACTIVE); HIV INTERPRETATION NEGATIVE (NEGATIVE)
[2024-09-19 15:41] VITALS: BP 134/75; PULSE 67; RESP 20
[2024-09-19] MEDS ORDERED: KETOROLAC TROMETHAMINE 15 MG/ML VIAL ONE (15:59)
[2024-09-19] MEDS: KETOROLAC TROMETHAMINE 15 MG/ML VIAL IVPUSH ONE (16:05)
[2024-09-19] MEDS ORDERED: CEFTRIAXONE 1 G/50 ML PREMIX 50 ML IVPB ONE (16:44)
[2024-09-19] MEDS: CEFTRIAXONE 1,000 MG in DEXTROSE 5%-WATER - 50 ML IVPB ONE (17:00)
== END 2024-09-19 17:17 | disposition home or self-care (01) ==
LOC: JER 11:12
PROC: 3E03329 Introduction of Other Anti-infective into Peripheral Vein, Percutaneous Approach (ICD-10-PCS; principal; 2024-09-19)
PROC: 3E0333Z Introduction of Anti-inflammatory into Peripheral Vein, Percutaneous Approach (ICD-10-PCS; 2024-09-19)
DX: N39.0 Urinary tract infection, site not specified (principal); R31.9 Hematuria, unspecified; R05.9 Cough, unspecified; K92.1 Melena; K64.4 Residual hemorrhoidal skin tags; R35.0 Frequency of micturition
CPT/HCPCS: 0241U-QW; 36415; 71046-TC-FY; 74176-TC; 80053; 81003; 82272; 83690; 83735; 84100; 85025; 85610; 85730; 86803; 86850; 86900; 86901; 87086; 87186; 87389; 93005; 93010; 96365; 96375; 99285-25